=== PATIENT | female | born 1940 | race Caucasian/White ===

== ENCOUNTER 2018-04-04 08:25 | Emergency (ER) | payer MEDICARE, BC ==
[2018-04-04] MEDS ORDERED: ONDANSETRON HCL/PF 4 MG/ 2ML VIAL IVP ONE (08:33)
[2018-04-04] MEDS ORDERED: IPRATROPIUM/ALBUTEROL SULFATE 3 ML AMPUL.NEB NEB ONE ×2 (08:34)
[2018-04-04] MEDS ORDERED: NALOXONE HCL 0.4 MG/ML AMP IVP ONE (08:36)
--- NOTE | 2018-04-04 08:40 | ED Physician Documentation ---
General Adult - HISTORIAN Historian: child - HPI Chief Complaint: Altered Mental Status Additional Information: 77yo white female who fell 3 days ago (Tuesday) and sustained a left humeral fracture. Patient was evaluated at an outside hospital and placed in a shoulder immobilizer. Patient has chronic pain and is taking hydrocodone on a regular basis. Her daughter states that she has been administering her pain medication and has been ginving it to her about every 4-6 hours as prescribed. Patient has been having some problems with nausea and vomiting in the past. Is scheduled to have on endoscopy done. This is usually controlled with Zofran. Patient has not been taking her Zofran on a regular basis and last evening she started to have some emisis. No blood noted. Patient has vomited approximately 10 times over the last 12 hours. When she gets into episodes like this she will become confused and will not respond normally. Has been hosptialized in the past with similar symptoms according to her daughter. Her family did not think that they could get her in a car to travel today and called an ambulance to bring her to the ED. Onset: hours Timing: still present Severity: moderate - ROS CONST: denies: fever, chills - PAST HX Past History: COPD, hypertension, other (reflex sympthetic dystrophy, history of lung cancer) Other History: diabetes Type 2, other (glaucoma) Surgeries/Procedures: other (cataract, left ear surgery) Allergies/Adverse Reactions: Allergies Allergy/AdvReac Type Severity Reaction Status Date / Time No Known Allergies Allergy Unverified 04/04/18 08:44 Home Medications: Ambulatory Orders Medication Instructions Recorded Albuterol Sulfate [Ventolin] 2.5 mg NEB 04/04/18 Atenolol [Tenormin] mg PO 04/04/18 Atorvastatin Calcium mg PO 04/04/18 Brinzolamide [Azopt] ml OP 04/04/18 Fluticasone/Salmeterol [Advair each INH DAILY 04/04/18 250-50 Diskus] Glipizide [Glipizide] 04/04/18 HYDROcodone /APAP 10/325 [[place] each PO 04/04/18 10/325] Ipratropium/Albuterol Sulfate 3 ml IH 04/04/18 [Duoneb] Lactulose [Constulose] 10 gm PO 04/04/18 Metformin HCl [Glucophage] 500 mg PO 04/04/18 Naloxegol Oxalate [Movantik] mg PO 04/04/18 Ondansetron [Zuplenz] 4 mg PO 04/04/18 Pregabalin [Lyrica] 04/04/18 Quinapril HCl [Accupril] 40 mg PO 04/04/18 - SOCIAL HX Smoking History: quit greater than 1 year (29 yrs ago) Alcohol Use: none Drug Use: none - FAMILY HX Family History: No Progress - Progress Progress: 08:45 post narcan patient seems more alert, but does not follow commands. 09:37 Mental status about the same GCS stable at 11 Chest x-ray rotated, left humeral fracture with sublaxation, possible dislocation. 11:01 Mental status about the same, no focal neuro deficit note ED Results Lab/Radiology - Radiology Radiology Impressions: Examination: Portable chest History: Evaluate lungs. HYPOXIA (Hx) Comparison exam: None provided. Findings: 3 views of the chest demonstrates a prominent cardiac and mediastinal silhouette. Vascular calcifications involving the aortic arch. Elevated left hemidiaphragm. Diffuse left hemithorax parenchymal haziness. No blunting of the right costophrenic margin. Articular degenerative changes. Impression: Diffuse left hemithorax infiltrate. Examination: CT head without contrast History: ALTERED MENTAL STATUS (Hx) Comparison exam: None available Technique: Noncontrast head CT protocol. Findings: Extensive motion artifact. Ventricles and sulci are prominent. Cerebrocerebellar parenchyma demonstrates periventricular low attenuation consistent with small vessel disease. Moderate areas of low attenuation involving the posterior hemispheres bilaterally. Increased attenuation along the left inner table - extending 1.1 cm. Suggestion for slight midline shift to the right. Partial visualization of the paranasal sinuses, mastoid air cells, orbits, skull and scalp without gross irregularity - though motion artifact reduces sensitivity Impression: Left subdural hematoma. Posterior parenchymal low attenuation - possible ischemia. Sensitivity reduced due to motion artifact. Consider brain MRI to further evaluate. Discussed finding with Dr. Bernabe at 1105 hours on 04 April 2018 CDT Examination: Abdomen History: NAUSEA/VOMITING X 15 HOURS (Hx) Findings: 2 views obtained of the abdomen. No abnormal dilation of the large or small bowel. Significant stool throughout the large bowel. No suspicious calcification projecting over the renal fossa or the lower pelvic region. Osseous structures demonstrate osteopenia and degenerative changes. Vascular calcifications. Impression: Significant large bowel stool - constipation. No obstruction. No suspicious calcifications by plain film sensitivity. - Orders Orders: ED Orders Category Date Time Status Place IV Lock 1T Care 04/04/18 08:35 Ordered ABDOMEN 1VIEW [RAD] Routine Exams 04/04/18 Ordered CHEST 1VIEW [RAD] Routine Exams 04/04/[address] BRAIN W/O CONTRAST Stat Exams 04/04/18 Ordered CBC/PLATELET/DIFF Routine Lab 04/04/18 Ordered CMP Routine Lab 04/04/18 Ordered Ipratropium/Albuterol Sulfate [Duoneb] Med 04/04/18 08:34 Discontinued 3 ml NEB .STK-MED ONE Ipratropium/Albuterol Sulfate [Duoneb] Med 04/04/18 08:34 Once 3 ml NEB NOW ONE Naloxone HCl [Narcan] Med 04/04/18 08:36 Once 0.4 mg IVP NOW ONE Ondansetron HCl/Pf [Zofran 4 mg/2 ml] Med 04/04/18 08:33 Once 4 mg IVP NOW ONE Oxygen Daily Oxygen 04/04/18 08:45 Ordered General Adult Physical Exam - PHYSICAL EXAM GENERAL APPEARANCE: mild distress EENT: eye inspection normal, ENT inspection normal NECK: normal inspection, supple. No: lymphadenopathy RESPIRATORY: no resp distress, rhonchi (few bilaterally) CVS: reg rate & rhythm, heart sounds normal, equal pulses, no murmur, no gallop ABDOMEN: soft, tenderness (mild diffuse). No: rebound, distended, guarding BACK: no CVA tenderness SKIN: warm/dry, other (eccymosis to ther left periorbital area, ecchymosis around the left shoulder area) NEURO: CN's nml as tested, motor nml, disoriented, other (Patient does open eyes to verbal stimuli, utters incoherent words, Localizes pain. GCS 11). No: oriented X3, cognition normal, weakness/sensory loss, facial droop, sensory/ motor deficit Discharge Clincal Impression: Subdural hematoma, acute Altered mental state Qualifiers: Altered mental status type: disorientation Qualified Code(s): R41.0 - Disorientation, unspecified Humeral fracture Qualifiers: Encounter type: subsequent encounter Humerus Location: proximal Fracture type: closed Fracture morphology: other fracture Fracture alignment: nondisplaced Laterality: left Fracture healing: with routine healing Qualified Code(s): S42.295D - Other nondisplaced fracture of upper end of left humerus, subsequent encounter for fracture with routine healing Shoulder subluxation, left Qualifiers: Encounter type: sequela Qualified Code(s): S43.002S - Unspecified subluxation of left shoulder joint, sequela Referrals: Primary Doctor,No [Primary Care Provider] - 2 Days Disposition: 02 XFER T-[facility] Decision to Admit: [id number] Date of Decison to Admit: 04/04/18 Decision Time: 11:33
[2018-04-04 08:47] LABS: BASOPHILS % 0.4 (0.0-1.5); EOSINOPHILS % 0.3 % (0.0-6.8); MEAN CORPUSCULAR HEMOGLOBIN 30.6 pg (28.0-34.0); MEAN CORPUSCULAR VOLUME 96.8 fl (80.0-100.0); MONOCYTES % 4.3 % (0.0-11.0); NEUTROPHILS # 8.8 # k/uL (1.4-7.7)
[2018-04-04] MEDS ORDERED: 0.9 % SODIUM CHLORIDE 1,000 ML IV ONE (08:53)
[2018-04-04 08:58] LABS: eGFR (African) > 60; eGFR (Non-African) > 60
[2018-04-04] MEDS ORDERED: 0.9 % SODIUM CHLORIDE 1,000 ML IV SCH (09:00)
[2018-04-04 12:10] VITALS: BP 174/68
--- NOTE | 2018-04-04 13:35 | Diagnostic Imaging Report ---
SUREKHA BERNABE [facility] [address] [facility] [address] [place], [place]. [address] Report Submission Date: Apr 04, 2018 11:08:13 AM CDT Patient Study Name: SHAYNE BOURGEOIS Date: Apr 04, 2018 10:29:57 AM CDT Modality Type: CT\SR Gender: F Description: CT BRAIN W/O CONTRAST : 44 Institution: [facility] Physician: SUREKHA BERNABE Examination: CT head without contrast History: ALTERED MENTAL STATUS (Hx) Comparison exam: None available Technique: Noncontrast head CT protocol. Findings: Extensive motion artifact. Ventricles and sulci are prominent. Cerebrocerebellar parenchyma demonstrates periventricular low attenuation consistent with small vessel disease. Moderate areas of low attenuation involving the posterior hemispheres bilaterally. Increased attenuation along the left inner table - extending 1.1 cm. Suggestion for slight midline shift to the right. Partial visualization of the paranasal sinuses, mastoid air cells, orbits, skull and scalp without gross irregularity - though motion artifact reduces sensitivity Impression: Left subdural hematoma. Posterior parenchymal low attenuation - possible ischemia. Sensitivity reduced due to motion artifact. Consider brain MRI to further evaluate. Discussed finding with Dr. Bernabe at 1105 hours on 04 April 2018 CDT Electronically signed on Apr 04, 2018 11:08:13 AM CDT by: Ludwin MACHADO
--- NOTE | 2018-04-04 13:36 | Diagnostic Imaging Report ---
SUREKHA ROSA [facility] [address] [facility] [address] [address] Report Submission Date: Apr 04, 2018 10:18:09 AM CDT Patient Study Name: SHAYNE BOURGEOIS Date: Apr 04, 2018 9:19:20 AM CDT Modality Type: DX Gender: F Description: ABDOMEN : 44 Institution: [facility] Physician: SUREKHA ROSA Examination: Abdomen History: NAUSEA/VOMITING X 15 HOURS (Hx) Findings: 2 views obtained of the abdomen. No abnormal dilation of the large or small bowel. Significant stool throughout the large bowel. No suspicious calcification projecting over the renal fossa or the lower pelvic region. Osseous structures demonstrate osteopenia and degenerative changes. Vascular calcifications. Impression: Significant large bowel stool - constipation. No obstruction. No suspicious calcifications by plain film sensitivity. Electronically signed on Apr 04, 2018 10:18:09 AM CDT by: Ludwin Chavez Correction to report: Renal region calcifications. No suspicious pelvic calcifications. Addendum electronically signed by Ludwin Chavez on April 04, 2018 10:19:03 AM CDT [facility]
--- NOTE | 2018-04-04 13:37 | Diagnostic Imaging Report ---
SUREKHA ROSA [facility] [address] [facility] [address] Report Submission Date: Apr 04, 2018 10:15:27 AM CDT Patient Study Name: SHAYNE BOURGEOIS Date: Apr 04, 2018 9:12:40 AM CDT Modality Type: DX Gender: F Description: CHEST : 44 Institution: [facility] Physician: SUREKHA ROSA Examination: Portable chest History: Evaluate lungs. HYPOXIA (Hx) Comparison exam: None provided. Findings: 3 views of the chest demonstrates a prominent cardiac and mediastinal silhouette. Vascular calcifications involving the aortic arch. Elevated left hemidiaphragm. Diffuse left hemithorax parenchymal haziness. No blunting of the right costophrenic margin. Articular degenerative changes. Impression: Diffuse left hemithorax infiltrate. Electronically signed on Apr 04, 2018 10:15:27 AM CDT by: Ludwin MACHADO
== END 2018-04-04 11:59 | disposition short-term general hospital (02) ==
LOC: ED 08:25
DX: S42.295D Other nondisplaced fracture of upper end of left humerus, subsequent encounter for fracture with routine healing (principal); S43.00 Unspecified subluxation and dislocation of shoulder joint; R41.0 Disorientation, unspecified; S06.5X0A Traumatic subdural hemorrhage without loss of consciousness, initial encounter
CPT/HCPCS: 36415; 70450; 71045; 74018; 80053; 85025; 93005; J2310; J2405; J7030; 51702; 94640; 96365; 96366; 96375; 99285